=== PATIENT | female | born 1965 | race Caucasian/White ===

== ENCOUNTER → 2022-03-23 | Outpatient (CLI) | payer OTHER | LOC: KOH-I 14:33 | DX: M54.50 Low back pain, unspecified (principal); G89.29 Other chronic pain; M47.816 Spondylosis without myelopathy or radiculopathy, lumbar region; M51.36 Other intervertebral disc degeneration, lumbar region; M43.16 Spondylolisthesis, lumbar region | CPT/HCPCS: 72100 ==